=== PATIENT | female | born 1965 | race Two or more races ===

== ENCOUNTER → 2019-01-17 | Outpatient (CLI) | payer OTHER ==
--- NOTE | 2019-01-17 11:00 | RAD ---
EXAM: AP and lateral views of the lumbar spine DATE: 01/17/2019 12:00 AM INDICATION: Chronic low back pain COMPARISON: No Prior FINDINGS: There are 5 nonrib-bearing lumbar-type vertebral bodies. Vertebral body heights are preserved. Mild L5-S1 disc height loss with endplate sclerosis and degenerative change. Mild to moderate facet degenerative changes at L4-5 and L5-S1. Trace anterolisthesis of L4 on L5. Right upper quadrant cholecystectomy clips are seen. IMPRESSION: 1. No evidence for acute fracture. 2. Trace anterolisthesis of L4 and L5 may be degenerative. Electronically signed by: Gabriel Villatoro MD (01/17/2019 10:56 AM) [id number]
== END | disposition home or self-care (01) ==
LOC: LAB 09:28
PROVIDERS: ATTEND Family Medicine
DX: M47.817 Spondylosis without myelopathy or radiculopathy, lumbosacral region (principal); M43.16 Spondylolisthesis, lumbar region; G89.29 Other chronic pain; G95.89 Other specified diseases of spinal cord; Z90.49 Acquired absence of other specified parts of digestive tract
CPT/HCPCS: 72100